=== PATIENT | female | born 2000 | race Hispanic/Latino ===

== ENCOUNTER 2019-12-28 16:23 | Emergency (ER) | payer OTHER ==
[~2019-12-28] VITALS: Ht 154.9 cm; Wt 87.1 kg
--- NOTE | 2019-12-28 16:37 | Emergency Department Note ---
History of Present Illnes History of Present Illness Chief Complaint: vaginal bleeding History of Present Illness This is a 19 year old female , with LMP 09/30/2019 who is 12-5/7 weeks , who vaginal bleeding and lower abdominal cramping that started approximately 3 and half hours prior to arrival. Patient initially went to [facility], and states that "she sat in the lobby, but no one ever checked me." She left, and then came here for evaluation. Patient had one episode of nausea and vomiting while at [place]. She denies any fever, chills, dysuria, frequency, urgency. Patient denies any trauma to the abdomen or abuse. Pt states that she has seen Vannesa Gomez CNM at [facility] clinic on [place]. Historian: Patient Arrival Mode: Car Museum Exhibit Technician Required: No Onset (how long ago): hour(s) (3.5) Location: vaginal bleeding Quality: cramping Severity: moderate (4-5/10) Onset quality: sudden Duration (how long): hour(s) (4.5) Timing of current episode: intermittent Progression: worsening Chronicity: new Context: Denies recent illness, Denies recent surgery, Denies trauma/injury, Denies new medications Relieving factors: none Exacerbating factors: none Associated symptoms: Reports nausea/vomiting; Denies fever/chills, Denies weakness Treatments prior to arrival: none Risk factors: 1st trimester Past Medical/Family History Physician Review I have reviewed the patient's past medical and family history. Any updates have been documented here. Past Medical History Recent Fever: No Clinical Suspicion of Infectio: No New/Unexplained Change in Ment: No Past Medical History: None Past Surgical History: None Social History Smoking Cessation: Never Smoker Counseling Performed: No Alcohol Use: None Any Illegal Drug Use: No TB Exposure/Symptoms: No Physically hurt or threatened: No Family History Family history of heart diseas: No Other Last Tetanus: > 5 years Any Pre-Existing Lines (PICC,: No Is patient up to date on immun: No Review of Systems Review of Systems Constitutional: Denies chills, Denies fever EENTM: Reports no symptoms Cardiovascular: Denies chest pain, Denies palpitations, Denies syncope Respiratory: Denies cough, Denies dyspnea, Denies dyspnea on exertion Gastrointestinal: Reports abdominal pain (lower abdominal, intermittent cramping), Reports nausea, Reports vomiting Genitourinary: Reports pain (lower abdominal cramping); Denies discharge, Denies dysuria, Denies frequency Musculoskeletal: Reports no symptoms Integumentary: Reports no symptoms Neurological: Reports no symptoms Hematological/Lymphatic: Reports no symptoms Review of other systems: All other systems negative Physical Exam Related Data Allergies: Coded Allergies: No Known Allergies (Unverified , 12/28/19) Vital signs reviewed: Yes Physical Exam CONSTITUTIONAL Constitutional: Present well-developed, Present well-nourished, Present obese, Present distressed (appears uncomfortable); Absent ill appearing HENT HENT: Present normocephalic, Present atraumatic, Present oropharynx clear/moist, Present nose normal HENT L/R: Present left ext ear normal, Present right ext ear normal EYES Eyes: Reports PERRL, Reports conjunctivae normal NECK Neck: Present ROM normal, Present supple; Absent cervical adenopathy PULMONARY Pulmonary: Present effort normal, Present breath sounds normal CARDIOVASCULAR Cardiovascular: Present regular rhythm, Present heart sounds normal, Present capillary refill normal, Present normal rate GASTROINTESTINAL Abdominal: Present soft, Present nontender, Present bowel sounds normal GENITOURINARY Genitourinary: Present other (blood on external genitalia; POC on stretcher and in vaginal vault; soft cervix, with open os, no CMT or uterine tenderness; mild suprapubic ttp; ) SKIN Skin: Present warm, Present dry MUSCULOSKELETAL Musculoskeletal: Present ROM normal; Absent tenderness, Absent swelling NEUROLOGICAL Neurological: Present alert, Present oriented x 3, Present no gross motor or sensory deficits PSYCHOLOGICAL Psychological: Present mood/affect normal, Present judgement normal Results Laboratory Laboratory BMP - normal, except for K+ = 3.5; CBC - WBC - 16.3, w/ 88.7% ganulocytes; ABO - pending BHCG - pending Products of Conception sent to Pathology for analysis; Lab results reviewed: Yes Imaging Imaging results reviewed: Yes Impressions [place] [id number] Patient Name: MILKA SANCHEZ MR #: [id number] : 2000 Age/Sex: 19/F Req #: [id number] Adm Physician: Ordered by: ESTELA MEZA MD Report #: [id number] Location: [facility] Room/Bed: Procedure: [id number] [facility]/ HOPDTRANSVAG OB 1ST Exam Date: 12/28/19 Exam Time: 1834 REPORT STATUS: Signed EXAM: First Trimester Obstetric Pelvic Ultrasound INDICATION: 12 weeks vaginal bleeding with clots COMPARISON: None TECHNIQUE: Grayscale transverse and sagittal transabdominal and transvaginal images were obtained of the pelvis. Transvaginal imaging was medically necessary to better evaluate the endometrium, adnexa, and fetus. CLINICAL HISTORY: 19 year old A0 Last menstrual period: 09/30/2019 Clinical gestational age: 12 weeks and 5 days FINDINGS: Uterus: Orientation: Normal Size: 8.7 x 5.0 x 6.5 cm, within normal limits. Mass: None Endometrium: There is heterogeneous indeterminate material within the endometrium. Gestational Sac: None identified. Subchorionic hemorrhage: None Yolk sac: Not identified. Embryo/Fetus: None identified. Right ovary Size: 2.7 x 2.1 x 2.5 cm Mass/Cyst: None Left ovary Size: 2.0 x 2.2 x 1.9 cm Mass/Cyst: None Cul-de-sac: No free fluid IMPRESSION: 1. No intrauterine identified. No abnormal adnexal mass bilaterally. 2. Heterogeneous indeterminate material within the endometrium. There are no prior studies for comparison and no beta-hCG levels at this time. Differential diagnosis includes endometritis, of unknown location or . Recommend correlation with prior images if available and beta-hCG values. Recommend SOLID WASTE MANAGER consultation for further evaluation and management. Signed by: Chepe Anglin MD on 12/28/2019 6:46 PM Dictated By: CHEPE ANGLIN MD 184 Transcribed By: RONI on 12/28/191845 COPY TO: ESTELA MEZA MD~ Assessment & Plan Medical Decision Making MDM - Spont AB in process. Explained to patient that we do not have OB services at the [facility] ED, and that she will need to be transferred for specialty evaluation. She has established care with Vannesa Gomez CNM, at [facility], and will contact them for transfer. - 18:25 - case discussed with Dr. Adriel Howell, prec[employer] police sergeant cosmetics demonstrator for [facility], who recommended that patient be transported to [facility], for ER evaluation b y OB. - Pt to receive Doxycycline 100 mg IV in the ED, due to elevated WBC = 16.3, low grade temp of 100.3 on arrival and open os, due to miscarriage. Pt has NO COVID symptoms, no URI symptoms, and no temp at home. - Await EMS transport. - Please call [phone], and ask for me or Mohsen Davis RN, and we will print the BHCG and ABO results and fax them to you. They were pending at the time of patient's transport. 19:24 - pt is currently pain free, following Morphine 4 mg IV + Zofran 4 mg IV. T = 100.5, P = 96, B/P = 111/66, R = 18, O2 Sat = 100% RA. Pt is medically stable for EMS transport. Assessment & Plan Final Impression: (1) Vaginal bleeding affecting early (2) Spontaneous in first trimester (3) Leukocytosis Depart Disposition: TRANS TO OTHER [facility] FACILITY ([facility], [place], [place].) ESTELA MEZA MD Dec 28, 2019 16:37
[2019-12-28] MEDS ORDERED: SODIUM CHLORIDE 0.9% 1000ML 1,000 ML IV SCH (17:15)
--- NOTE | 2019-12-28 17:47 | NUR ---
Called warehouse operations manager for approval to transfer pt to [facility] for OB as pt is already established there with OB
--- NOTE | 2019-12-28 17:55 | NUR ---
Contacted [facility] for transfer to OB
--- OUTSIDE RECORDS SUMMARY | 2019-12-28 17:55 | XMS REPORT | Continuity of Care Document ---
Author Author [facility] t Organization [facility] Address [address] [place] [address] Phone Unavailable Care Team Providers Care Jukebox Operator Name Role Phone Trimester, [facility] Attphys Unavailable Adiel RAYMOND, [place] Attphys Vannesa Gomez CNMs Problems This patient has no known problems. Allergies, Adverse Reactions, Alerts This patient has no known allergies or adverse reactions. Medications This patient has no known medications. Procedures This patient has no known procedures. Encounters Start Date/Time End Date/Time Encounter Type Admission Type [facility] Care Department Encounter ID Source 2019-12-24 09:30:41 2019-12-24 11:15:16 Routine Visit [facility], [address] [id number] 2019-12-24 00:00:00 2019-12-24 00:00:00 Prep For Surgery [place] [facility] [id number] 2019-12-24 00:00:00 2019-12-24 00:00:00 Telephone Vannesa Gomez [facility] [id number] 2019-12-22 10:32:39 2019-12-23 10:37:39 Routine Visit Vannesa Gomez [facility] SUPERVISOR BLAST[facility] [id number] Results This patient has no known results.
[2019-12-28] MEDS ORDERED: SODIUM CHLORIDE 0.9% 1000ML 1,000 ML ONE (18:16)
--- NOTE | 2019-12-28 18:25 | NUR ---
Doc to Doc done with Dr. Adriel Howell
[2019-12-28] MEDS ORDERED: ONDANSETRON HCL INJ 2MG/ML 2ML 2 MG/ML VIAL IV STA (18:28)
[2019-12-28] MEDS ORDERED: MORPHINE SULFATE INJ 4 MG/ML INJ 1ML IV STA (18:28)
[2019-12-28] MEDS ORDERED: DOXYCYCLINE 100MG/NS 100ML 100 ML IV ONE (18:30)
[2019-12-28] MEDS ORDERED: MORPHINE SULFATE INJ 4 MG/ML INJ 1ML ONE (18:36)
[2019-12-28] MEDS ORDERED: ONDANSETRON HCL INJ 2MG/ML 2ML 2 MG/ML VIAL ONE (18:36)
--- NOTE | 2019-12-28 18:50 | Diagnostic Imaging Report ---
EXAM: First Trimester Obstetric Pelvic Ultrasound INDICATION: 12 weeks vaginal bleeding with clots COMPARISON: None TECHNIQUE: Grayscale transverse and sagittal transabdominal and transvaginal images were obtained of the pelvis. Transvaginal imaging was medically necessary to better evaluate the endometrium, adnexa, and fetus. CLINICAL HISTORY: 19 year old A0 Last menstrual period: 09/30/2019 Clinical gestational age: 12 weeks and 5 days FINDINGS: Uterus: Orientation: Normal Size: 8.7 x 5.0 x 6.5 cm, within normal limits. Mass: None Endometrium: There is heterogeneous indeterminate material within the endometrium. Gestational Sac: None identified. Subchorionic hemorrhage: None Yolk sac: Not identified. Embryo/Fetus: None identified. Right ovary Size: 2.7 x 2.1 x 2.5 cm Mass/Cyst: None Left ovary Size: 2.0 x 2.2 x 1.9 cm Mass/Cyst: None Cul-de-sac: No free fluid IMPRESSION: 1. No intrauterine identified. No abnormal adnexal mass bilaterally. 2. Heterogeneous indeterminate material within the endometrium. There are no prior studies for comparison and no beta-hCG levels at this time. Differential diagnosis includes endometritis, of unknown location or . Recommend correlation with prior images if available and beta-hCG values. Recommend TERRA COTTA MOLD MAKER consultation for further evaluation and management. Signed by: Zulema Sloan MD on 12/28/2019 6:46 PM
--- NOTE | 2019-12-28 19:04 | NUR ---
[facility] ambulance called for transport to [facility] ETA is 30 minutes
--- NOTE | 2019-12-28 19:21 | NUR ---
Acceptance by Lexus Russo to ER report to be called to [phone], [address]
--- NOTE | 2019-12-28 19:25 | NUR ---
Report to GILBERTO Arizmendi at [facility]
[2019-12-28 19:29] VITALS: BP 111/66
== END 2019-12-28 19:34 | disposition other institution (70) ==
LOC: FSED 17:13
DX: O03.9 Complete or unspecified spontaneous abortion without complication (principal); D72.829 Elevated white blood cell count, unspecified
CPT/HCPCS: 36415; 76817; 80048; 81003; 81025; 84702; 85025; 86900; 88305; 96374; 96375; 99284; J2270; J2405; J7030